=== PATIENT | female | born 1940 | race African-American/Black ===

== ENCOUNTER 2017-01-19 02:33 | Emergency (ER) | payer MEDICARE, OTHER ==
[~2017-01-19 02:33] MED LIST: FERR324T4 PO; MILKSUS5 PO; NAPR-576 PO; NEXI20CA PO; ROBA750T PO; SYNT25TA PO; TAB-TAB PO; TYLETAB34 PO
[2017-01-19 02:37] VITALS: BP 149/70; PULSE 52; RESP 16; TEMP 97.8; O2SAT 98
[2017-01-19] MEDS ORDERED: SYNT25TA PO (02:59)
[2017-01-19] MEDS ORDERED: MILKSUS PO (02:59)
[2017-01-19] MEDS ORDERED: DORZ2SOL7 EACH EYE (03:00)
[2017-01-19] MEDS ORDERED: LUMI0.01 EACH EYE (03:00)
[2017-01-19] MEDS ORDERED: ONDANSETRON ODT 4 MG TAB PO ONE (03:15)
--- NOTE | 2017-01-19 03:57 | RADRPT ---
EXAM DATE/TIME: 01/19/2017 03:45 [facility] COMPARISON: No previous studies available for comparison. INDICATIONS : Cough. MEDICAL HISTORY : Gastroesophageal reflux disease. Hypercholesterolemia. Cardiovascular disease. SURGICAL HISTORY : section. ENCOUNTER: Initial ACUITY: 1 day PAIN SCORE: 0/10 LOCATION: Bilateral chest FINDINGS: PA and lateral views of the chest demonstrate the lungs to be symmetrically hyperinflated without yamila dence of mass, infiltrate or effusion. Atherosclerotic calcifications are present in the aorta. The cardiomediastinal contours are unremarkable. Osseous structures are intact. CONCLUSION: No acute disease. The lungs are hyperinflated and there is no evidence of pneumonia. Jason Vasquez MD on January 19, 2017 at 3:55 Board Certified Radiologist. This report was verified electronically.
--- NOTE | 2017-01-19 04:13 | PD ---
HPI Chief Complaint: General Weakness Time Seen by Provider: 03:04 Travel History International Travel<30 days: No Contact w/Intl Traveler<30days: No Traveled to known affect area: No History of Present Illness HPI Patient is a 76-year-old female presents with a very vague complaint of nausea. Patient states family was visiting from out of town and they were wearing cologne that did not agree with her. She states that the smell of this cologne made her very nauseous and felt very weak and just not well. She states currently she is starting to feel better but wanted to come in and be checked out anyways. She denies any chest pain shortness of breath abdominal pain vomiting diarrhea or fevers. She does endorse some minor dry cough on review of systems. PFSH Past Medical History Asthma: Yes Heart Rhythm Problems: No Cancer: No Cardiac Catheterization: No Cardiovascular Problems: Yes (MURMUR) High Cholesterol: Yes Congestive Heart Failure: No Diabetes: No Diminished Hearing: No GERD: Yes Glaucoma: Yes Headaches: Yes (MIGRAINES) Heparin Induced Thrombocytopen: No Immune Disorder: No Implanted Vascular Access Dvce: No Musculoskeletal: No Respiratory: Yes (asthma) Myocardial Infarction: No Thyroid Disease: Yes Influenza Vaccination: No Menopausal: Yes : 2 Para: 2 Past Surgical History Section: Yes (X2) Coronary Artery Bypass Graft: No Eye Surgery: Yes (retina) Thoracic Surgery: Yes (l hip) Other Surgery: No Social History Alcohol Use: No Tobacco Use: No Substance Use: No Allergies-Medications (Allergen,Severity, Reaction): Coded Allergies: No Known Allergies (Verified , 01/19/17) Reported Meds & Prescriptions Reported Meds & Active Scripts Active Reported Lumigan Opth Drops (Bimatoprost) 0.01% Soln 1 Drop EACH EYE HS Cosopt Opth Drops (Dorzolamide-Timolol Opth Drops) 22.3-6.8 Mg/Ml Soln 1 Drop EACH EYE BID Milk of Magnesia Liq (Magnesium Hydroxide) 400 Mg/5 Ml Susp 30 Ml PO DAILY PRN Synthroid (Levothyroxine Sodium) 25 Mcg Tab 12.5 Mcg PO DAILY Review of Systems Except as stated in HPI: all other systems reviewed are Neg Physical Exam Narrative GENERAL: Well-developed, thin, quite pleasant demeanor in no apparent distress. SKIN: Focused skin assessment warm/dry. HEAD: Atraumatic. Normocephalic. EYES: Pupils equal and round. No scleral icterus. No injection or drainage. ENT: No nasal bleeding or discharge. Mucous membranes pink and moist. NECK: Trachea midline. No JVD. CARDIOVASCULAR: Regular rate and rhythm. No murmur appreciated. RESPIRATORY: No accessory muscle use. Clear to auscultation. Breath sounds equal bilaterally. GASTROINTESTINAL: Abdomen soft, non-tender, nondistended. Hepatic and splenic margins not palpable. MUSCULOSKELETAL: No obvious deformities. No clubbing. No cyanosis. No edema. NEUROLOGICAL: Awake and alert. No obvious cranial nerve deficits. Motor grossly within normal limits. Normal speech. PSYCHIATRIC: Appropriate mood and affect; insight and judgment normal. Data Data Last Documented VS Vital Signs Date Time Temp Pulse Resp B/P Pulse Ox O2 Delivery O2 Flow Rate FiO2 01/19/17 04:32 98.9 51 16 171/82 99 01/19/17 02:37 Room Air Orders Chest, Pa & Lat (01/19/17 ) Electrocardiogram (01/19/17 ) Ondansetron Odt (Zofran Odt) (01/19/17 03:15) MDM Medical Decision Making Medical Screen Exam Complete: Yes Emergency Medical Condition: Yes Interpretation(s) EKG shows sinus bradycardia without concerning ST segment changes. Intervals within normal limits. This normal EKG except for rate. Differential Diagnosis Nausea, ACS highly unlikely, CT highly unlikely, pneumonia, URI. Narrative Course Patient was roomed in emergency department, she appears well in no obvious distress. Very vague complaints of nausea which are nearly resolved in the emergency department, Zofran was ordered and patient declined this stating that her nausea had resolved. An EKG and chest x-ray were reassuring. I see no indication for lab work at this time as the patient appears quite well and has no complaints of pain and has a reassuring physical exam. Discussed that she should return to emergency department should the symptoms recur and follow up with her primary care physician. She is agreeable. Diagnosis Primary Impression: Nausea Disposition: 01 DISCHARGE HOME Condition: Stable Hugo Suero MD Jan 19, 2017 04:13
[2017-01-19 04:32] VITALS: BP 171/82; TEMP 98.9
--- NOTE | 2017-01-19 09:31 | EKG ---
Date Performed: 01/19/2017 Time Performed: 03:23:08 PTAGE: 76 years EKG: SINUS BRADYCARDIA BORDERLINE ECG NO PREVIOUS TRACING DOCTOR: Herbie Stokes Interpretating Date/Time 01/19/2017 09:28:32
== END 2017-01-19 04:33 | disposition home or self-care (01) ==
LOC: NEPE 02:33
DX: R11.0 Nausea (principal); R53.1 Weakness; J45.909 Unspecified asthma, uncomplicated; K21.9 Gastro-esophageal reflux disease without esophagitis
CPT/HCPCS: 71020; 93005; 99284

== ENCOUNTER 2017-03-25 04:34 | Emergency (ER) | payer MEDICARE, OTHER ==
[~2017-03-25 04:34] MED LIST changes: +DORZ2SOL7 EACH EYE; -FERR324T4 PO; +LUMI0.01 EACH EYE; +MILKSUS PO; -MILKSUS5 PO; -NAPR-576 PO; -NEXI20CA PO; -ROBA750T PO; -TAB-TAB PO; -TYLETAB34 PO
[2017-03-25 04:37] VITALS: BP 139/63; PULSE 53; RESP 16; TEMP 97.9; O2SAT 99
[2017-03-25] MEDS ORDERED: FERR325T8 PO (04:49)
[2017-03-25] MEDS ORDERED: VITD400 PO (04:49)
[2017-03-25] MEDS ORDERED: SODIUM CHLORIDE 0.9% FLUSH 10 ML FLUSH IVF PRN (05:15)
[2017-03-25 05:31] LABS: AUTOMATED NEUTROPHIL # 2.1 TH/MM3 (1.8-7.7); BASOPHIL # 0.1 TH/MM3 (0-0.2); BASOPHIL % 2.3 % (0.0-2.0); EOSINOPHIL # 0.3 TH/MM3 (0-0.4); EOSINOPHIL % 4.8 % (0.0-4.0); HEMATOCRIT 36.8 % (35.0-46.0); HEMO FLAGS DIFF FINAL; LYMPH % 40.6 % (9.0-44.0); LYMPHOCYTE # 2.1 TH/MM3 (1.0-4.8); MEAN CELL VOLUME 73.7 FL (80.0-100.0); MEAN CORPUSCULAR HEMOGLOBIN 23.4 PG (27.0-34.0); MEAN CORPUSCULAR HGB CONC 31.8 % (32.0-36.0); NEUT % 41.3 % (16.0-70.0); PLATELET COUNT 296 TH/MM3 (150-450); RED BLOOD COUNT 4.99 MIL/MM3 (4.00-5.30); RED CELL DISTRIBUTION WIDTH 16.1 % (11.6-17.2); WHITE BLOOD COUNT 5.2 TH/MM3 (4.0-11.0)
[2017-03-25 05:44] LABS: ANION GAP 6 MEQ/L (5-15); BICARBONATE 27.9 MEQ/L (21.0-32.0); BLOOD UREA NITROGEN 9 MG/DL (7-18); CHLORIDE 107 MEQ/L (98-107); GLOMERULAR FILTRATION RATE 108 ML/MIN (>89); MAGNESIUM 2.4 MG/DL (1.5-2.5); POTASSIUM 3.7 MEQ/L (3.5-5.1); SODIUM (NA) 141 MEQ/L (136-145)
--- NOTE | 2017-03-25 05:59 | PD ---
HPI Chief Complaint: General Weakness Time Seen by Provider: 05:00 Travel History International Travel<30 days: No Contact w/Intl Traveler<30days: No Traveled to known affect area: No History of Present Illness HPI Patient is a 76-year-old female known to me from previous ER visit presents emergency department for generalized weakness of the lower extremities, right sided abdominal wall pain, and dry eyes. Patient has a list of her complaints that she brought with her. She is quite pleasant and appears in no distress. She states the weakness is been going on and off for some time. Denies any unilateral weakness visual difficulties headaches or history of strokes. Denies any chest pain shortness of breath abdominal pain dark stool or blood in the stool. PFSH Past Medical History Asthma: Yes Heart Rhythm Problems: No Cancer: No Cardiac Catheterization: No Cardiovascular Problems: Yes (MURMUR) High Cholesterol: Yes Congestive Heart Failure: No Diabetes: No Diminished Hearing: No GERD: Yes Glaucoma: Yes Headaches: Yes (MIGRAINES) Heparin Induced Thrombocytopen: No Immune Disorder: No Implanted Vascular Access Dvce: No Musculoskeletal: No Respiratory: Yes (asthma) Myocardial Infarction: No Thyroid Disease: Yes Menopausal: Yes : 2 Para: 2 Past Surgical History Section: Yes (X2) Coronary Artery Bypass Graft: No Eye Surgery: Yes (retina) Thoracic Surgery: Yes (l hip) Other Surgery: No Family History Family Myocardial Infarction: No Social History Alcohol Use: No Tobacco Use: No Substance Use: No Allergies-Medications (Allergen,Severity, Reaction): Coded Allergies: No Known Allergies (Verified , 03/25/17) Reported Meds & Prescriptions Reported Meds & Active Scripts Active Reported Vitamin D3 (Cholecalciferol) 400 Unit Tab 400 Units PO DAILY Ferrous Sulfate 325 Mg (65 Mg Iron) Tablet 325 Mg PO DAILY Lumigan Opth Drops (Bimatoprost) 0.01% Soln 1 Drop EACH EYE HS Cosopt Opth Drops (Dorzolamide-Timolol Opth Drops) 22.3-6.8 Mg/Ml Soln 1 Drop EACH EYE BID Milk of Magnesia Liq (Magnesium Hydroxide) 400 Mg/5 Ml Susp 30 Ml PO DAILY PRN Synthroid (Levothyroxine Sodium) 25 Mcg Tab 12.5 Mcg PO DAILY Review of Systems Except as stated in HPI: all other systems reviewed are Neg Physical Exam Narrative GENERAL: Well-developed well-nourished but thin in no obvious distress and pleasant. SKIN: Focused skin assessment warm/dry. HEAD: Atraumatic. Normocephalic. EYES: Pupils equal and round. No scleral icterus. No injection or drainage. ENT: No nasal bleeding or discharge. Mucous membranes pink and moist. NECK: Trachea midline. No JVD. CARDIOVASCULAR: Regular rate and rhythm. No murmur appreciated. RESPIRATORY: No accessory muscle use. Clear to auscultation. Breath sounds equal bilaterally. GASTROINTESTINAL: Abdomen soft, non-tender, nondistended. Hepatic and splenic margins not palpable. MUSCULOSKELETAL: No obvious deformities. No clubbing. No cyanosis. No edema. NEUROLOGICAL: Awake and alert. Cranial nerves II through XII grossly intact and nonfocal, 5 out of 5 strength in all 4 extremity's. PSYCHIATRIC: Appropriate mood and affect; insight and judgment normal. Data Data Last Documented VS Vital Signs Date Time Temp Pulse Resp B/P Pulse Ox O2 Delivery O2 Flow Rate FiO2 03/25/17 06:13 98 Room Air 03/25/17 04:37 97.9 53 16 139/63 Orders Basic Metabolic Panel (Bmp) (03/25/17 05:05) Complete Blood Count With Diff (03/25/17 05:05) Magnesium (Mg) (03/25/17 05:05) Troponin I (03/25/17 05:05) Iv Access Insert/Monitor (03/25/17 05:05) Oximetry (03/25/17 05:05) Sodium Chloride 0.9% Flush (Ns Flush) (03/25/17 05:15) Labs Laboratory Tests Test 03/25/17 05:15 White Blood Count 5.2 TH/MM3 Red Blood Count 4.99 MIL/MM3 Hemoglobin 11.7 GM/DL Hematocrit 36.8 % Mean Corpuscular Volume 73.7 FL Mean Corpuscular Hemoglobin 23.4 PG Mean Corpuscular Hemoglobin 31.8 % Concent Red Cell Distribution Width 16.1 % Platelet Count 296 TH/MM3 Mean Platelet Volume 7.8 FL Neutrophils (%) (Auto) 41.3 % Lymphocytes (%) (Auto) 40.6 % Monocytes (%) (Auto) 11.0 % Eosinophils (%) (Auto) 4.8 % Basophils (%) (Auto) 2.3 % Neutrophils # (Auto) 2.1 TH/MM3 Lymphocytes # (Auto) 2.1 TH/MM3 Monocytes # (Auto) 0.6 TH/MM3 Eosinophils # (Auto) 0.3 TH/MM3 Basophils # (Auto) 0.1 TH/MM3 CBC Comment DIFF FINAL Differential Comment Sodium Level 141 MEQ/L Potassium Level 3.7 MEQ/L Chloride Level 107 MEQ/L Carbon Dioxide Level 27.9 MEQ/L Anion Gap 6 MEQ/L Blood Urea Nitrogen 9 MG/DL Creatinine 0.65 MG/DL Estimat Glomerular Filtration 108 ML/MIN Rate Random Glucose 87 MG/DL Calcium Level 9.5 MG/DL Magnesium Level 2.4 MG/DL Troponin I LESS THAN 0.02 NG/ML MDM Medical Decision Making Medical Screen Exam Complete: Yes Emergency Medical Condition: Yes Interpretation(s) EKG shows sinus bradycardia rate of 48, normal axis, otherwise normal intervals , normal R-wave progression. No concerning ST segment changes. Normal EKG except for rate. Differential Diagnosis Anemia, acute kidney injury, electrolyte abnormality, generalized fatigue. Narrative Course Patient roomed in emergency department, appears well and in no distress. Her basic laboratory workup negative. Discussed with her see no emergent cause of her symptoms time and no indication further workup. She stable for discharge. Discussed need follow-up the primary care physician. Diagnosis Primary Impression: Generalized weakness Additional Impression: Fatigue Patient Instructions: Fatigue (DC), General Instructions Disposition: 01 DISCHARGE HOME Condition: Stable Hugo Suero MD Mar 25, 2017 05:59
[2017-03-25 06:13] VITALS: O2SAT 98
--- NOTE | 2017-03-25 07:31 | EKG ---
Date Performed: 03/25/2017 Time Performed: 04:55:34 PTAGE: 76 years EKG: SINUS BRADYCARDIA Borderline nonspecific T-wave changes BORDERLINE ECG Compared to prior tr acing no significant change DOCTOR: Reese Zavala Interpretating Date/Time 03/25/2017 07:30:45
== END 2017-03-25 06:29 | disposition home or self-care (01) ==
LOC: NEPE 04:34
DX: R53.1 Weakness (principal); R53.83 Other fatigue; J45.909 Unspecified asthma, uncomplicated; K21.9 Gastro-esophageal reflux disease without esophagitis; E78.00 Pure hypercholesterolemia, unspecified; R07.9 Chest pain, unspecified
CPT/HCPCS: 80048; 83735; 84484; 85025; 93005; 99284

== ENCOUNTER 2017-06-06 23:30 | Emergency (ER) | payer MEDICARE, OTHER ==
[~2017-06-06] VITALS: Ht 165.1 cm; Wt 59.0 kg
[~2017-06-06 23:30] MED LIST changes: +FERR325T8 PO; +VITD400 PO
[2017-06-06 23:31] VITALS: BP 142/78; PULSE 62; RESP 15; TEMP 97.9; O2SAT 98
[2017-06-07 01:35] LABS: BICARBONATE 26.5 MEQ/L (21.0-32.0); CALCIUM 8.8 MG/DL (8.5-10.1); CREATININE 0.72 MG/DL (0.50-1.00)
--- NOTE | 2017-06-07 01:50 | PD ---
HPI Chief Complaint: General Weakness Time Seen by Provider: 00:24 Travel History International Travel<30 days: No Contact w/Intl Traveler<30days: No Traveled to known affect area: No History of Present Illness HPI This 76-year-old woman presents to the emergency department complaining of unusual symptoms of intermittent weakness feeling in her arms and legs sort of a spasm lasting seconds at a time. She had 3 times today symptoms 3 times today. She otherwise has been feeling well. No other complaints. History Past Medical History Narrative Medical Glaucoma Anemia GERD Asthma Tetanus Vaccination: Unknown Influenza Vaccination: No Menopausal: Yes : 2 Para: 2 Social History Alcohol Use: No Tobacco Use: No Allergies-Medications (Allergen,Severity, Reaction): Coded Allergies: No Known Allergies (Verified , 06/06/17) Reported Meds & Prescriptions Reported Meds & Active Scripts Active Reported Vitamin D3 (Cholecalciferol) 400 Unit Tab 400 Units PO DAILY Ferrous Sulfate 325 Mg (65 Mg Iron) Tablet 325 Mg PO DAILY Lumigan Opth Drops (Bimatoprost) 0.01% Soln 1 Drop EACH EYE HS Cosopt Opth Drops (Dorzolamide-Timolol Opth Drops) 22.3-6.8 Mg/Ml Soln 1 Drop EACH EYE BID Synthroid (Levothyroxine Sodium) 25 Mcg Tab 12.5 Mcg PO DAILY Review of Systems Except as stated in HPI: all other systems reviewed are Neg Physical Exam Narrative GENERAL: Well-appearing 76-year-old woman, no acute distress. Then. SKIN: Focused skin assessment warm/dry. HEAD: Atraumatic. Normocephalic. EYES: Pupils equal and round. No scleral icterus. No injection or drainage. ENT: No nasal bleeding or discharge. Mucous membranes pink and moist. NECK: Trachea midline. No JVD. CARDIOVASCULAR: Regular rate and rhythm. No murmur appreciated. RESPIRATORY: No accessory muscle use. Clear to auscultation. Breath sounds equal bilaterally. GASTROINTESTINAL: Abdomen soft, non-tender, nondistended. Hepatic and splenic margins not palpable. MUSCULOSKELETAL: No obvious deformities. Decreased muscle bulk. NEUROLOGICAL: Awake and alert. No obvious cranial nerve deficits. Motor grossly within normal limits. Normal speech. PSYCHIATRIC: Appropriate mood and affect; insight and judgment normal. Data Data Last Documented VS Vital Signs Date Time Temp Pulse Resp B/P (MAP) Pulse Ox O2 Delivery O2 Flow Rate FiO2 06/06/17 23:31 97.9 62 15 142/78 (99) 98 Room Air Orders Orders Basic Metabolic Panel (Bmp) (06/07/17 00:32) Labs Laboratory Tests Test 06/07/17 00:54 Blood Urea Nitrogen 14 MG/DL Creatinine 0.72 MG/DL Random Glucose 101 MG/DL Calcium Level 8.8 MG/DL Sodium Level 142 MEQ/L Potassium Level 3.5 MEQ/L Chloride Level 110 MEQ/L Carbon Dioxide Level 26.5 MEQ/L Anion Gap 6 MEQ/L Estimat Glomerular Filtration Rate 96 ML/MIN MDM Medical Decision Making Medical Screen Exam Complete: Yes Emergency Medical Condition: Yes Differential Diagnosis Like sciatica mallet, anxiety, neck problems, spasms, other Narrative Course 61 year-old woman with unusual intermittent weakness spasms in her arms and legs. Looks well. Doesn't sound emergent. Is been there for the Past day or so in her arms. Recommend observing for a week and follow-up with a primary of symptoms continue. Diagnosis Primary Impression: Generalized weakness Additional Instructions: Follow-up with your doctor in 1 week if symptoms persist. Disposition: 01 DISCHARGE HOME Condition: Stable Herbie Cuevas MD Jun 07, 2017 01:50
[2017-06-07 02:07] VITALS: BP 111/72; PULSE 68; RESP 16; O2SAT 97
== END 2017-06-07 02:09 | disposition home or self-care (01) ==
LOC: NEPE 23:30
DX: R53.1 Weakness (principal); M62.838 Other muscle spasm; H40.9 Unspecified glaucoma; D64.9 Anemia, unspecified; K21.9 Gastro-esophageal reflux disease without esophagitis; J45.909 Unspecified asthma, uncomplicated; Z79.899 Other long term (current) drug therapy
CPT/HCPCS: 80048; 99283

== ENCOUNTER 2017-10-08 17:31 | Observation (INO) | payer MEDICARE, OTHER ==
[~2017-10-08] VITALS: Ht 162.6 cm; Wt 60.0 kg
[~2017-10-08 17:31] MED LIST changes: +FERR325T18 PO; -FERR325T8 PO; -MILKSUS PO
[2017-10-08 18:04] VITALS: BP 164/70; PULSE 63; RESP 18; TEMP 98.4; O2SAT 99
--- NOTE | 2017-10-08 18:22 | PD ---
HPI Chief Complaint: Cold / Flu Symptoms Time Seen by Provider: 18:17 Travel History International Travel<30 days: No Contact w/Intl Traveler<30days: No Traveled to known affect area: No History of Present Illness HPI 77-year-old female patient with history of hypothyroidism, presents to the ER today with atypical complaints, states that for the last 3 weeks she has had intermittent burning in her abdomen, around her chest, it goes up to burning in the neck and ears, and currently she is rating the abdomen and chest discomfort at a 5 out of 10. She denies any vomiting, shortness of breath, coughing, or any other symptoms. Sometimes it is related to food but she states is not consistently related to anything. Modifying Factors: None Associated Signs & Symptoms: Chest discomfort, abdominal discomfort, burning up to the neck Risk Factors: None PFSH Past Medical History Asthma: Yes Heart Rhythm Problems: No Cancer: No Cardiac Catheterization: No Cardiovascular Problems: Yes (rheumatic fever, heart murmurs) High Cholesterol: Yes Congestive Heart Failure: No Diabetes: No Diminished Hearing: No GERD: Yes Glaucoma: Yes Headaches: Yes (MIGRAINES) Heparin Induced Thrombocytopen: No Immune Disorder: No Implanted Vascular Access Dvce: No Musculoskeletal: No Respiratory: Yes (asthma) Myocardial Infarction: No Thyroid Disease: Yes Menopausal: Yes : 2 Para: 2 Past Surgical History Section: Yes (X2) Coronary Artery Bypass Graft: No Eye Surgery: Yes (RETINA) Thoracic Surgery: Yes (l hip) Other Surgery: No Social History Alcohol Use: No Tobacco Use: No Substance Use: No Allergies-Medications (Allergen,Severity, Reaction): Coded Allergies: No Known Allergies (Verified Adverse Reaction, Unknown, 10/08/17) Reported Meds & Prescriptions Reported Meds & Active Scripts Active Reported Vitamin D3 (Cholecalciferol) 400 Unit Tab 400 Units PO DAILY Ferrous Sulfate 325 Mg (65 Mg Iron) Tablet 325 Mg PO DAILY Lumigan Opth Drops (Bimatoprost) 0.01% Soln 1 Drop EACH EYE HS Cosopt Opth Drops (Dorzolamide-Timolol Opth Drops) 22.3-6.8 Mg/Ml Soln 1 Drop EACH EYE BID Synthroid (Levothyroxine Sodium) 25 Mcg Tab 25 Mcg PO DAILY Review of Systems Except as stated in HPI: all other systems reviewed are Neg Physical Exam Narrative GENERAL: Well-developed elderly -Maced[place] female patient currently in mild distress. Awake and oriented 3. SKIN: Focused skin assessment warm/dry. HEAD: Atraumatic. Normocephalic. EYES: Pupils equal and round. No scleral icterus. No injection or drainage. ENT: No nasal bleeding or discharge. Mucous membranes pink and moist. NECK: Trachea midline. No JVD. Supple. CARDIOVASCULAR: Regular rate and rhythm. No murmur appreciated. RESPIRATORY: No accessory muscle use. Clear to auscultation. Breath sounds equal bilaterally. GASTROINTESTINAL: Abdomen soft, non-tender, nondistended. Hepatic and splenic margins not palpable. MUSCULOSKELETAL: No obvious deformities. No clubbing. No cyanosis. No edema. NEUROLOGICAL: Awake and alert. No obvious cranial nerve deficits. Motor grossly within normal limits. Normal speech. PSYCHIATRIC: Appropriate mood and affect; insight and judgment normal. Data Data Last Documented VS Vital Signs Date Time Temp Pulse Resp B/P (MAP) Pulse Ox O2 Delivery O2 Flow Rate FiO2 10/08/17 20:00 56 18 119/54 (75) 99 Room Air 10/08/17 18:04 98.4 Orders Orders Electrocardiogram (10/08/17 18:17) Ckmb (Isoenzyme) Profile (10/08/17 18:17) Complete Blood Count With Diff (10/08/17 18:17) Comprehensive Metabolic Panel (10/08/17 18:17) Magnesium (Mg) (10/08/17 18:17) Prothrombin Time / Inr (Pt) (10/08/17 18:17) Act Partial Throm Time (Ptt) (10/08/17 18:17) Troponin I (10/08/17 18:17) Lipase (10/08/17 18:17) Ecg Monitoring (10/08/17 18:17) Bilateral Bp Monitoring (10/08/17 18:17) Iv Access Insert/Monitor (10/08/17 18:17) Oximetry (10/08/17 18:17) Oxygen Administration (10/08/17 18:17) Sodium Chloride 0.9% Flush (Ns Flush) (10/08/17 18:30) Chest, Pa & Lat (10/08/17 18:17) Admit Order (Ed Use Only) (10/08/17 20:05) Activity Bed Rest With Brp (10/08/17 20:07) Vital Signs (Adult) Q4H (10/08/17 20:07) Cardiac Rhythm .As Directed (10/08/17 20:07) Notify Dr: Other .PRN (10/08/17 20:07) Notify Parameters (10/08/17 20:07) Resp Oxygen Nasal Cannula (10/08/17 ) Diet Heart Healthy (10/09/17 Breakfast) Ckmb (Isoenzyme) Profile (10/08/17 20:07) Ckmb (Isoenzyme) Profile (10/08/17 23:07) Troponin I (10/08/17 20:07) Troponin I (10/08/17 23:07) Electrocardiogram (10/08/17 20:07) Electrocardiogram (10/08/17 23:07) ^ Obtain (10/08/17 20:07) Sodium Chloride 0.9% Flush (Ns Flush) (10/08/17 20:15) Sodium Chloride 0.9% Flush (Ns Flush) (10/08/17 21:00) Tile Layer Supervisor / Telemetry [id number] (10/08/17 20:07) Labs Laboratory Tests Test 10/08/17 18:40 White Blood Count 4.4 TH/MM3 Red Blood Count 4.89 MIL/MM3 Hemoglobin 11.6 GM/DL Hematocrit 35.6 % Mean Corpuscular Volume 72.8 FL Mean Corpuscular Hemoglobin 23.6 PG Mean Corpuscular Hemoglobin Concent 32.5 % Red Cell Distribution Width 15.7 % Platelet Count 274 TH/MM3 Mean Platelet Volume 7.6 FL Neutrophils (%) (Auto) 39.7 % Lymphocytes (%) (Auto) 43.2 % Monocytes (%) (Auto) 10.1 % Eosinophils (%) (Auto) 4.4 % Basophils (%) (Auto) 2.6 % Neutrophils # (Auto) 1.7 TH/MM3 Lymphocytes # (Auto) 1.9 TH/MM3 Monocytes # (Auto) 0.4 TH/MM3 Eosinophils # (Auto) 0.2 TH/MM3 Basophils # (Auto) 0.1 TH/MM3 CBC Comment DIFF FINAL Differential Comment Prothrombin Time 10.5 SEC Prothromb Time International Ratio 1.0 RATIO Activated Partial Thromboplast Time 29.0 SEC Blood Urea Nitrogen 10 MG/DL Creatinine 0.63 MG/DL Random Glucose 83 MG/DL Total Protein 8.5 GM/DL Albumin 3.9 GM/DL Calcium Level 9.4 MG/DL Magnesium Level 2.0 MG/DL Alkaline Phosphatase 76 U/L Aspartate Amino Transf (AST/SGOT) 13 U/L Alanine Aminotransferase (ALT/SGPT) 12 U/L Total Bilirubin 0.4 MG/DL Sodium Level 139 MEQ/L Potassium Level 3.8 MEQ/L Chloride Level 106 MEQ/L Carbon Dioxide Level 29.5 MEQ/L Anion Gap 4 MEQ/L Estimat Glomerular Filtration Rate 111 ML/MIN Total Creatine Kinase 85 U/L Troponin I LESS THAN 0.02 NG/ML Lipase 158 U/L [facility] Medical Decision Making Medical Screen Exam Complete: Yes Emergency Medical Condition: Yes Medical Record Reviewed: Yes Interpretation(s) EKG shows sinus bradycardia rate of 54 bpm with no signs of acute ST changes. Laboratory Tests Test 10/08/17 18:40 Mean Corpuscular Volume 72.8 FL (80.0-100.0) Mean Corpuscular Hemoglobin 23.6 PG (27.0-34.0) Monocytes (%) (Auto) 10.1 % (0.0-8.0) Eosinophils (%) (Auto) 4.4 % (0.0-4.0) Basophils (%) (Auto) 2.6 % (0.0-2.0) Neutrophils # (Auto) 1.7 TH/MM3 (1.8-7.7) Total Protein 8.5 GM/DL (6.4-8.2) Aspartate Amino Transf (AST/SGOT) 13 U/L (15-37) Anion Gap 4 MEQ/L (5-15) Troponin I LESS THAN 0.02 NG/ML Last 24 hours Impressions Chest X-Ray 10/08/177 Signed Impressions: Service Date/Time: Sunday, October 08, 2017 18:31 - CONCLUSION: 1. Hyperinflation of the lungs. 2. Mild cardiomegaly. Hugo Curtis MD Differential Diagnosis Gastritis versus atypical chest pain/ACS versus metabolic issues versus dysrhythmias versus pancreatitis Narrative Course Abdomen is fairly benign I do not suspect any acute intra-abdominal process. Her chest pains are fairly atypical as well. She has had a previous stress test which was abnormal. EKG did not show any signs of acute ST changes and cardiac enzymes are negative. At this point, my plan would be to admit her for further evaluation of the atypical chest pain. Diagnosis Primary Impression: Atypical chest pain Admitting Information Admitting Physician Requests: it Arash Dong MD Oct 08, 2017 18:22
[2017-10-08] MEDS ORDERED: SODIUM CHLORIDE 0.9% FLUSH 10 ML FLUSH IVF PRN (18:30)
[2017-10-08 18:35] VITALS: RESP 16; O2SAT 98
[2017-10-08 19:00] LABS: AUTOMATED NEUTROPHIL # 1.7 TH/MM3 (1.8-7.7); BASOPHIL # 0.1 TH/MM3 (0-0.2); BASOPHIL % 2.6 % (0.0-2.0); EOSINOPHIL # 0.2 TH/MM3 (0-0.4); EOSINOPHIL % 4.4 % (0.0-4.0); HEMATOCRIT 35.6 % (35.0-46.0); HEMOGLOBIN 11.6 GM/DL (11.6-15.3); LYMPH % 43.2 % (9.0-44.0); LYMPHOCYTE # 1.9 TH/MM3 (1.0-4.8); MEAN CELL VOLUME 72.8 FL (80.0-100.0); MEAN CORPUSCULAR HEMOGLOBIN 23.6 PG (27.0-34.0); MEAN CORPUSCULAR HGB CONC 32.5 % (32.0-36.0); MEAN PLATELET VOLUME 7.6 FL (7.0-11.0); MONO % 10.1 % (0.0-8.0); MONOCYTE # 0.4 TH/MM3 (0-0.9); NEUT % 39.7 % (16.0-70.0); PLATELET COUNT 274 TH/MM3 (150-450); RED BLOOD COUNT 4.89 MIL/MM3 (4.00-5.30); RED CELL DISTRIBUTION WIDTH 15.7 % (11.6-17.2); WHITE BLOOD COUNT 4.4 TH/MM3 (4.0-11.0)
[2017-10-08 19:19] LABS: PROTHROMBIN TIME - PATIENT 10.5 SEC (9.8-11.6)
--- NOTE | 2017-10-08 19:25 | RADRPT ---
EXAM DATE/TIME: 10/08/2017 18:31 [facility] COMPARISON: CHEST PA & LAT, January 19, 2017, 3:45. INDICATIONS : Short of breath, rash. MEDICAL HISTORY : None. SURGICAL HISTORY : None. ENCOUNTER: Initial ACUITY: 1 day PAIN SCORE: 0/10 LOCATION: Bilateral chest FINDINGS: The heart is mildly prominent. The lungs remain hyperinflated. No focal infiltrate or pulmonary vascu lar congestion is noted. CONCLUSION: 1. Hyperinflation of the lungs. 2. Mild cardiomegaly. Hugo Curtis MD on October 08, 2017 at 19:22 Board Certified Radiologist. This report was verified electronically.
[2017-10-08 19:29] LABS: ALBUMIN 3.9 GM/DL (3.4-5.0); AST (GOT) 13 U/L (15-37); BICARBONATE 29.5 MEQ/L (21.0-32.0); BLOOD UREA NITROGEN 10 MG/DL (7-18); CALCIUM 9.4 MG/DL (8.5-10.1); CHLORIDE 106 MEQ/L (98-107); CREATININE 0.63 MG/DL (0.50-1.00); GLOMERULAR FILTRATION RATE 111 ML/MIN (>89); GLUCOSE,RANDOM 83 MG/DL (74-106); SODIUM (NA) 139 MEQ/L (136-145)
[2017-10-08 19:34] LABS: ALKALINE PHOSPHATASE 76 U/L (45-117); ALT (GPT) 12 U/L (10-53); TOTAL BILIRUBIN ADULT 0.4 MG/DL (0.2-1.0); TOTAL PROTEIN 8.5 GM/DL (6.4-8.2); TROPONIN I LESS THAN 0.02 NG/ML (0.02-0.05)
[2017-10-08 20:00] VITALS: BP 119/54; PULSE 56; RESP 18; O2SAT 99
[2017-10-08] MEDS ORDERED: SODIUM CHLORIDE 0.9% FLUSH 10 ML FLUSH IV FLUSH PRN (20:15)
[2017-10-08 21:00] VITALS: BP 130/66; PULSE 58; RESP 14; TEMP 98.1; O2SAT 98
[2017-10-08] MEDS: SODIUM CHLORIDE 0.9% FLUSH 10 ML FLUSH IV FLUSH SCH (22:00)
[2017-10-08 22:26] LABS: TROPONIN I LESS THAN 0.02 NG/ML (0.02-0.05)
[2017-10-08 23:22] VITALS: BP 117/58; PULSE 57; RESP 18; TEMP 98.1; O2SAT 97
[2017-10-09 00:05] VITALS: PULSE 50
[2017-10-09 01:23] LABS: TROPONIN I LESS THAN 0.02 NG/ML (0.02-0.05)
[2017-10-09 03:47] VITALS: BP 101/53; PULSE 49; RESP 13; TEMP 97.3; O2SAT 96
[2017-10-09 04:18] VITALS: PULSE 50
[2017-10-09] MEDS ORDERED: ONDANSETRON HCL 4 MG/2 ML VIAL IV PUSH PRN (07:30)
[2017-10-09] MEDS ORDERED: NITROGLYCERIN 0.4 MG SL 25 TABS/BTL SL PRN (07:30)
[2017-10-09] MEDS ORDERED: ACETAMINOPHEN 500 MG CPLT PO PRN (07:30)
--- NOTE | 2017-10-09 07:38 | HHI.HP ---
HPI Primary Care Physician Seth Rivera MD Chief Complaint Posterior neck and bilateral ear burning History of Present Illness 77 year old female with history of GERD, anemia, and hypothyroidism presents to ER for further evaluation of posterior neck, bilateral ears and epigastric burning. Onset x1 month, occurs daily, sometimes multiple times. See has seen her PCP regarding this and PCP recommended dietary modifications. Denies acid reflux feeling or sore taste. Describes epigastric burning with associated bilateral shoulders, posterior neck, and bilateral ears burning. Duration generally lasted at least 2 hours. No known precipitating or relieving factors. Denies any nausea, vomiting, dyspnea, or diaphoresis. Denies any chest discomfort, pressure, tightness, or burning. Currently, reports bilateral external ears and posterior neck burning. Review of Systems General: No fatigue,weakness, fever, chills, recent illness, or change in appetite. HEENT: No DUVAL, no vision changes, no nasal congestion or drainage, no dysphasia CV: As stated above. No current CP, pressure, of discomfort. No palpitations, intermittent leg pain, or dizziness. RESP: No SOB, cough, wheeze, or URI. GI: Known GERD, current symptoms not completely similar to past GERD symptoms. Has eliminated greasy and spicy food, without relief of symptoms. No nausea, vomiting, bowel changes. No unintentional weight gain or weight loss. : No dysuria, urgency, frequency EXT: No lower leg edema, no paraesthesias MS: No discomfort, injury, trauma, or change in ROM NEURO: No change in memory, difficulty with balance, LOC, motor/sensory deficits PSYCH: No anxiety, depression SKIN: No rashes, no concerning lesions Past Family Social History Allergies: Coded Allergies: No Known Allergies (Verified Allergy, Unknown, 10/09/17) Past Medical History Hypothyroidism, GERD, migraines, iron deficiency anemia, HLD, heart murmur ( since a child), glaucoma Past Surgical History Retina surgery Reported Medications Reported Meds & Active Scripts Active Reported Vitamin D3 (Cholecalciferol) 400 Unit Tab 400 Units PO DAILY Ferrous Sulfate 325 Mg (65 Mg Iron) Tablet 325 Mg PO DAILY Lumigan Opth Drops (Bimatoprost) 0.01% Soln 1 Drop EACH EYE HS Cosopt Opth Drops (Dorzolamide-Timolol Opth Drops) 22.3-6.8 Mg/Ml Soln 1 Drop EACH EYE BID Synthroid (Levothyroxine Sodium) 25 Mcg Tab 25 Mcg PO DAILY Active Ordered Medications Current Medications Medications (Trade) Dose Ordered Sig/Saloni Route Start Time Stop Time Status Last Admin (NS Flush) 2 ml UNSCH PRN IVF 10/08/17 18:30 (NS Flush) 2 ml UNSCH PRN IV FLUSH 10/08/17 20:15 (NS Flush) 2 ml BID IV FLUSH 10/08/17 21:00 10/08/17 22:00 (Tylenol) 500 mg Q4H PRN PO 10/09/17 07:30 UNV (Zofran Inj) 4 mg Q6H PRN IV PUSH 10/09/17 07:30 UNV (Nitrostat Sl) 0.4 mg Q5M PRN SL 10/09/17 07:30 UNV (Aspirin) 325 mg DAILY PO 10/09/17 09:00 UNV Social History No known coronary artery disease, diabetes, or hypertension. Reportedly told she has mild hyperlipidemia, not significant enough to place on medication. Lifelong nonsmoker. Denies any or illegal drug use. . Endorses an active lifestyle. Past cardiac testing No recent cardiac testing 01/21/12 Lexiscan-unremarkable 01/10/09 Lexiscan-unremarkable Physical Exam Vital Signs Vital Signs Date Time Temp Pulse Resp B/P (MAP) Pulse Ox O2 Delivery O2 Flow Rate FiO2 10/09/17 04:18 50 10/09/17 03:47 97.3 49 13 101/53 (69) 96 10/09/17 00:05 50 10/08/17 23:22 98.1 57 18 117/58 (77) 97 10/08/17 21:00 98.1 58 14 130/66 (87) 98 10/08/17 20:36 10/08/17 20:00 56 18 119/54 (75) 99 Room Air 10/08/17 18:35 16 98 Room Air 10/08/17 18:04 98.4 63 18 164/70 (101) 99 Physical Exam GENERAL: Alert WN, WD, NAD, pleasant, female HEAD: NC, AT EYES: Sclera clear, conjunctiva without injection, pupils equal and round ENT: Mucous membranes pink and moist CV: RRR, without murmur, rub, gallop, no JVD, S1-S2 no S3-S4. Chest wall nontender with palpation. RESP: Clear lungs throughout bilateral, no crackles, wheeze, rhonchi, symmetrical chest rise, nonlabored, able to speak in full sentences ABD: Soft, NT, ND, no masses, positive bowel tones EXT: Pulses +24, no dependent edema MS: Normal tone 4 extremities, nontender, no recent injury or trauma, no obvious deformities, full range of motion NEURO: CN II through CN XII grossly intact, motor strength 5/5 PSYCH: A+O 3, pleasant affect, appropriate speech, mood, insight and judgment SKIN: Normal turgor, normal texture, no lesions, no rashes, even hair distribution Laboratory Laboratory Tests Test 10/08/17 18:40 10/08/17 21:49 10/09/17 00:45 White Blood Count 4.4 Red Blood Count 4.89 Hemoglobin 11.6 Hematocrit 35.6 Mean Corpuscular Volume 72.8 Mean Corpuscular Hemoglobin 23.6 Mean Corpuscular Hemoglobin Concent 32.5 Red Cell Distribution Width 15.7 Platelet Count 274 Mean Platelet Volume 7.6 Neutrophils (%) (Auto) 39.7 Lymphocytes (%) (Auto) 43.2 Monocytes (%) (Auto) 10.1 Eosinophils (%) (Auto) 4.4 Basophils (%) (Auto) 2.6 Neutrophils # (Auto) 1.7 Lymphocytes # (Auto) 1.9 Monocytes # (Auto) 0.4 Eosinophils # (Auto) 0.2 Basophils # (Auto) 0.1 CBC Comment DIFF FINAL Differential Comment Prothrombin Time 10.5 Prothromb Time International Ratio 1.0 Activated Partial Thromboplast Time 29.0 Blood Urea Nitrogen 10 Creatinine 0.63 Random Glucose 83 Total Protein 8.5 Albumin 3.9 Calcium Level 9.4 Magnesium Level 2.0 Alkaline Phosphatase 76 Aspartate Amino Transf (AST/SGOT) 13 Alanine Aminotransferase (ALT/SGPT) 12 Total Bilirubin 0.4 Sodium Level 139 Potassium Level 3.8 Chloride Level 106 Carbon Dioxide Level 29.5 Anion Gap 4 Estimat Glomerular Filtration Rate 111 Total Creatine Kinase 85 79 69 Troponin I LESS THAN 0.02 LESS THAN 0.02 LESS THAN 0.02 Lipase 158 Result Diagram: 10/08/17 1840 10/08/17 184 Imaging Last 48 hours Impressions Chest X-Ray 2/28/18 1817 Signed Impressions: Service Date/Time: Sunday, October 08, 2017 18:31 - CONCLUSION: 1. Hyperinflation of the lungs. 2. Mild cardiomegaly. Hugo Curtis MD Course EKG NSB, normal axis, no st t segment changes Caprini VTE Risk Assessment Caprini VTE Risk Assessment: No/Low Risk (score <= 1) Caprini Risk Assessment Model Point Value = 1 Point Value = 2 Point Value = 3 Point Value = 5 Age 41-60 Minor surgery BMI > 25 kg/m2 Swollen legs Varicose veins or History of unexplained or recurrent spontaneous Oral contraceptives or hormone replacement Sepsis (< 1 month) Serious lung disease, including pneumonia (< 1 month) Abnormal pulmonary function Acute myocardial infarction Congestive heart failure (< 1 month) History of inflammatory bowel disease Medical patient at bed rest Age 61-74 Arthroscopic surgery Major open surgery (> 45 min) Laparoscopic surgery (> 45 min) Malignancy Confined to bed (> 72 hours) Immobilizing plaster cast Central venous access Age >= 75 History of VTE Family history of VTE Factor V Leiden Prothrombin [id number] Lupus anticoagulant Anticardiolipin antibodies Elevated serum homocysteine Heparin-induced thrombocytopenia Other congenital or acquired thrombophilia Stroke (< 1 month) Elective arthroplasty Hip, pelvis, or leg fracture Acute spinal cord injury (< 1 month) Prophylaxis Regimen Total Risk Factor Score Risk Level Prophylaxis Regimen 0-1 Low Early ambulation 2 Moderate Order ONE of the following: *Sequential Compression Device (SCD) *Heparin 5000 units SQ BID 3-4 Higher Order ONE of the following medications: *Heparin 5000 units SQ TID *Enoxaparin/Lovenox 40 mg SQ daily (WT < 150 kg, CrCl > 30 mL/min) *Enoxaparin/Lovenox 30 mg SQ daily (WT < 150 kg, CrCl > 10-29 mL/min) *Enoxaparin/Lovenox 30 mg SQ BID (WT < 150 kg, CrCl > 30 mL/min) AND/OR *Sequential Compression Device (SCD) 5 or more Highest Order ONE of the following medications: *Heparin 5000 units SQ TID (Preferred with Epidurals) *Enoxaparin/Lovenox 40 mg SQ daily (WT < 150 kg, CrCl > 30 mL/min) *Enoxaparin/Lovenox 30 mg SQ daily (WT < 150 kg, CrCl > 10-29 mL/min) *Enoxaparin/Lovenox 30 mg SQ BID (WT < 150 kg, CrCl > 30 mL/min) AND *Sequential Compression Device (SCD) Assessment and Plan Assessment and Plan #1 Atypical chest discomfort-admitted to chest pain. Ruled out with 3 sets of EKGs, cardiac enzymes, and monitored overnight. Seen and evaluated by Dr. Samantha Hampton. Proceed with chemical stress testing this morning. If unremarkable , plan would be to discharge patient home with follow up with PCP. Explained cardiac symptoms may present atypically therefore stress testing recommended. Patient agreeable to plan of care. Zehra Pham Oct 09, 2017 07:38
[2017-10-09 07:39] VITALS: BP 118/54; PULSE 54; RESP 16; TEMP 98; O2SAT 99
[2017-10-09 08:05] VITALS: PULSE 54
[2017-10-09] MEDS: SODIUM CHLORIDE 0.9% FLUSH 10 ML FLUSH IV FLUSH SCH (09:00)
[2017-10-09] MEDS ORDERED: ASPIRIN 325 MG TAB PO SCH (09:00)
[2017-10-09] MEDS ORDERED: CHOLECALCIFEROL (VIT D3) 400 UNIT TAB PO SCH (09:45)
[2017-10-09] MEDS ORDERED: LEVOTHYROXINE SODIUM 25 MCG TAB PO SCH (09:45)
[2017-10-09] MEDS ORDERED: FERROUS SULFATE 325 MG (65 MG ELEMENTAL IRON) TAB PO SCH (10:00)
[2017-10-09] MEDS ORDERED: REGADENOSON INJ 0.4 MG/5 ML SYR ONE (10:06)
[2017-10-09] MEDS ORDERED: DORZOLAMIDE/TIMOLOL OPTH SOLN 10 ML BTL EACH EYE SCH (11:00)
[2017-10-09 11:39] VITALS: BP 121/67; PULSE 63; RESP 18; TEMP 97; O2SAT 95
--- NOTE | 2017-10-09 11:59 | RADRPT ---
EXAM DATE/TIME: 10/09/2017 09:33 [facility] COMPARISON: No previous studies available for comparison. INDICATIONS : Chest burning x 3 weeks. Angina. DOSE: 25.4 mCi Tc99m Myoview at stress. 8.2 mCi Tc99m Myoview at rest. 0.4 mg Lexiscan STRESS SYMPTOMS: Shortness of breath. EJECTION FRACTION: 69% MEDICAL HISTORY : Hypothyroidism. Hypercholesterolemia. SURGICAL HISTORY : section. Hip. ENCOUNTER: Sequela ACUITY: 3 weeks PAIN SCALE: 5/10 LOCATION: Bilateral chest TECHNIQUE: The patient underwent pharmacologic stress with infusion of prescribed dose. Continuous ECG tracing was monitored during stress. Gated SPECT imaging was performed after stress and conventional SPECT i maging was performed at rest. The examination was performed on a SPECT/CT scanner, both attenuation and non-corrected datasets were reviewed. FINDINGS: DISTRIBUTION: The maximum perfused segment at stress is in the anterior wall. PERFUSION STUDY: The pattern of perfusion at stress is within normal limits. GATED STUDY: There is intact wall motion and thickening without hypokinetic or dyskinetic segments. CONCLUSION: Normal examination. RISK CATEGORY: Low (<1% Annual Mortality Rate) Seth Melissa MD on October 09, 2017 at 11:56 Board Certified Radiologist. This report was verified electronically.
--- NOTE | 2017-10-09 12:05 | HHI.DCPOC ---
Discharge Care Plan Diagnosis: (1) Atypical chest pain Goals to Promote Your Health * To prevent worsening of your condition and complications * To maintain your health at the optimal level Directions to Meet Your Goals Take your medications as prescribed Follow your dietary instruction Follow activity as directed Keep your appointments as scheduled Take your immunizations and boosters as scheduled If your symptoms worsen call your PCP, if no PCP go to Urgent Care Center or Emergency Room Smoking is Dangerous to Your Health. Avoid second hand smoke Call the 24-hour hour crisis hotline for domestic abuse at Zehra Pham Oct 09, 2017 12:05
--- NOTE | 2017-10-09 12:14 | HHI.DCPOC ---
Discharge Care Plan Diagnosis: (1) GERD (gastroesophageal reflux disease) Goals to Promote Your Health * To prevent worsening of your condition and complications * To maintain your health at the optimal level Directions to Meet Your Goals Take your medications as prescribed Follow your dietary instruction Follow activity as directed Keep your appointments as scheduled Take your immunizations and boosters as scheduled If your symptoms worsen call your PCP, if no PCP go to Urgent Care Center or Emergency Room Smoking is Dangerous to Your Health. Avoid second hand smoke Call the 24-hour hour crisis hotline for domestic abuse at Zehra Pham Oct 09, 2017 12:14
--- NOTE | 2017-10-09 17:59 | EKG ---
Date Performed: 10/08/2017 Time Performed: 21:55:56 PTAGE: 77 years EKG: SINUS BRADYCARDIA NONSPECIFIC T-WAVE ABNORMALITY BORDERLINE ECG Since PREVIOUS TRACING , no significant change noted PREVIOUS TRACIN10/08/2017 18.39 DOCTOR: Samantha Hampton Interpretating Date/Time 10/09/2017 17:58:31
--- NOTE | 2017-10-09 18:00 | EKG ---
Date Performed: 10/09/2017 Time Performed: 00:58:34 PTAGE: 77 years EKG: SINUS BRADYCARDIA VOLTAGE CRITERIA FOR LVH NONSPECIFIC T-WAVE ABNORMALITY ABNORMAL ECG Sinc e PREVIOUS TRACING , no significant change noted PREVIOUS TRACIN10/08/2017 21.55 DOCTOR: Samantha Hampton Interpretating Date/Time 10/09/2017 17:58:56
--- NOTE | 2017-10-09 18:01 | TR ---
Date Performed: 10/09/2017 Time Performed: 10:17:58 DOCTOR: Samantha Hampton DRUG LIST: CLINICAL HISTORY: ANGINA REASON FOR TEST: Angina REASON FOR ENDING: OBSERVATION: CONCLUSION: Lexiscan stress test was performed under standard four minute protocol. Radionuclid e was injected one minute prior to ending the test. No electrocardiographic abormalities were present to suggest ischemia. Nuclear imaging and interpretation are pending. COMMENTS:
--- NOTE | 2017-10-09 18:09 | EKG ---
Date Performed: 10/08/2017 Time Performed: 18:39:14 PTAGE: 77 years EKG: SINUS BRADYCARDIA BORDERLINE ECG Since PREVIOUS TRACING , no significant change noted PREVIOUS TRACIN03/25/2017 04.55 DOCTOR: Samantha Hampton Interpretating Date/Time 10/09/2017 18:08:40
== END 2017-10-09 17:19 | disposition home or self-care (01) ==
LOC: NEPD 17:31 → NEDA 20:07 → NEPHCDU 20:41
PROVIDERS: ADMIT Internal Medicine Cardiovascular Disease; ATTEND Internal Medicine Cardiovascular Disease
DX: R07.89 Other chest pain (principal); R06.02 Shortness of breath; R21 Rash and other nonspecific skin eruption; I20.9 Angina pectoris, unspecified; I51.7 Cardiomegaly; R00.1 Bradycardia, unspecified; R94.31 Abnormal electrocardiogram [ECG] [EKG]; E78.00 Pure hypercholesterolemia, unspecified; E03.9 Hypothyroidism, unspecified; J45.909 Unspecified asthma, uncomplicated; K21.9 Gastro-esophageal reflux disease without esophagitis; H40.9 Unspecified glaucoma; Z79.899 Other long term (current) drug therapy
CPT/HCPCS: 71046; 78452; 80053; 82550; 83690; 83735; 84484; 85025; 85610; 85730; 93005; 93017; 99285; A9502; G0378; J2785